=== PATIENT | female | born 1940 | race Caucasian/White ===

== ENCOUNTER 2021-02-15 16:25 | Emergency (ER) | payer MEDICARE ==
[~2021-02-15] VITALS: Ht 160 cm; Wt 67.5 kg
[2021-02-15 16:29] VITALS: BP 138/63
[2021-02-15] MEDS ORDERED: IBUPROFEN 600 MG TABLET ONE (19:50)
[2021-02-15] MEDS ORDERED: LIDODERM 5% PATCH TD ONE ×2 (19:51→20:00)
[2021-02-15] MEDS ORDERED: IBUPROFEN 200 MG TABLET PO ONE (20:00)
--- NOTE | 2021-02-15 20:09 | NUR ---
pt medicated per order, lidocaine patch applied, tolerated well. pt educated on dc instructions, verbalized understanding. ambulatory to dc desk with steady gait and use of personal cane, accompanied by daughter.
== END 2021-02-15 20:13 | disposition home or self-care (01) ==
LOC: ED 20:05
DX: S16.1XXA Strain of muscle, fascia and tendon at neck level, initial encounter (principal); S00.33XA Contusion of nose, initial encounter; S09.8XXA Other specified injuries of head, initial encounter; M47.892 Other spondylosis, cervical region; J45.909 Unspecified asthma, uncomplicated; I50.9 Heart failure, unspecified; W01.0XXA Fall on same level from slipping, tripping and stumbling without subsequent striking against object, initial encounter; Y93.89 Activity, other specified; Y92.89 Other specified places as the place of occurrence of the external cause; Y99.8 Other external cause status
CPT/HCPCS: 70450; 70486; 72125; 99285